=== PATIENT | male | born 1980 | race Caucasian/White ===

== ENCOUNTER 2019-06-30 13:07 | Emergency (ER) | payer MEDICAID ==
[~2019-06-30] VITALS: Ht 170.2 cm; Wt 76.2 kg
[2019-06-30 13:10] VITALS: Ht 170.2 cm; Wt 76.2 kg
[2019-06-30 13:50] LABS: BASOPHIL % 0.3 % (0-2); PLATELET COUNT 230 x10^3mcL (130-400); RED CELL DISTRIBUTION WIDTH 12.9 % (11.5-14.5)
[2019-06-30 14:02] LABS: CALCIUM 8.7 mg/dL (8.5-10.1); CARBON DIOXIDE 26.9 mmol/L (21-32); CHLORIDE SERUM 107 mmol/L (98-107); GFR1 > 60 mL/min; GLUCOSE SERUM 97 mg/dL (74-106); POTASSIUM SERUM 3.7 mmol/L (3.5-5.1); SODIUM SERUM 142 mmol/L (136-145)
[2019-06-30 14:06] LABS: ALBUMIN 4.2 g/dL (3.4-5.0); ALKALINE PHOSPHATASE 84 U/L (46-116); ALT/SGPT 41 U/L (16-63); AST/SGOT 17 U/L (15-37); BILIRUBIN TOTAL 0.79 mg/dL (0.20-1.00); TOTAL PROTEIN, SERUM 7.8 g/dL (6.4-8.2)
[2019-06-30 16:24] VITALS: BP 117/73
== END 2019-06-30 16:24 | disposition home or self-care (01) ==
LOC: ED 13:07
DX: R07.89 Other chest pain (principal)
CPT/HCPCS: J1885

== ENCOUNTER 2020-01-17 12:55 | Emergency (ER) | payer MEDICAID ==
[~2020-01-17] VITALS: Ht 167.6 cm; Wt 80.5 kg
[2020-01-17 12:59] VITALS: BP 138/81; Ht 167.6 cm; Wt 80.5 kg
== END 2020-01-17 13:46 | disposition home or self-care (01) ==
LOC: ED 12:55
DX: L72.3 Sebaceous cyst (principal); Z48.01 Encounter for change or removal of surgical wound dressing; F17.210 Nicotine dependence, cigarettes, uncomplicated
CPT/HCPCS: 99406